=== PATIENT | male | born 1940 | race Caucasian/White ===

== ENCOUNTER → 2021-09-03 | Outpatient (CLI) | payer OTHER ==
[~2021-09-03] VITALS: Ht 177.8 cm; Wt 102.3 kg
[~2021-09-03] MED LIST: ADULT LOW DOSE81 MG PO; BAYER CHEWABLE81 MG PO; BRILINTA90 MG PO; COZAAR 50 MG TA50 M2 PO; EFFIENT10 MG PO; FISH OIL 1,001000 M1 PO; IBUPROFEN 200200 M1 PO; NITROGLYCERIN0.4 MG SUBLING; OMEGA-31000 M1 PO; OMEPRAZOLE 20 M20 M1 PO; OMEPRAZOLE40 MG PO; SIMVASTATIN40 MG PO; THERA-M CAPLET1 EAC2 PO; TOPROL XL25 MG PO; ZOCOR40 MG PO
[2021-09-03 09:37] VITALS: BP 140/85
[2021-09-03 09:54] LABS: HEMATOCRIT 49.1 % (42.0-52.0); MCH 32.7 pg (26.0-34.0); MCHC 34.6 g/dL (28.0-37.0); MCV 94.5 fL (80.0-100.0); MPV 7.8 fl. (7.2-11.1); RBC 5.19 mil/uL (4.50-6.00); RDW-CV 13.5 % (10.5-14.5); WBC 7.3 thou/uL (4.0-11.0)
[2021-09-03 10:09] LABS: ANION GAP 7 mmol/L (7-16); BUN 27 mg/dL (7-18); CALCIUM 9.5 mg/dL (8.5-10.1); CHLORIDE 105 mmol/L (98-107); CO2 26 mmol/L (21-32); GLUCOSE 106 mg/dL (70-99); POTASSIUM 4.9 mmol/L (3.5-5.1); SODIUM 138 mmol/L (136-145)
[2021-09-03 10:14] LABS: ALBUMIN 3.5 g/dL (3.4-5.0); ALKALINE PHOSPHATASE 90 U/L (46-116); CHOLESTEROL 183 mg/dL (<200); HDL CHOLESTEROL 39 mg/dL (>40); LDL CHOLESTEROL 83 mg/dL (<100); SGOT 38 U/L (15-37); SGPT 25 U/L (30-65); TC:HDL 4.7 Ratio (Not establshd); TOTAL BILIRUBIN 0.8 mg/dL (<0.1-1.0); TOTAL PROTEIN 7.7 g/dL (6.4-8.2); TRIGLYCERIDE 307 mg/dL (<150); VLDL 61 mg/dL (<40)
[2021-09-03 10:17] LABS: SERUM ASSESSMENT Clear
--- NOTE | 2021-09-03 10:24 | EKG ---
[place] [address] ELECTROCARDIOGRAM REPORT Name: QUE ABBASI Room: [facility]#: [id number] Admission: 09/03/21 Attend Phys: Silverio Real, Discharge: Date of : 38 Date of Service: 09/03/21 0954 Report #: [id number] THIS REPORT FOR: //name// [facility] Test Date: 2021-09-03 Test Time: 09:54:57 Pat Name: QUE ABBASI Department: Room: Gender: Machine Technician: : 1940 Requested By: Que Diallo Order Number: [id number] Antwon MD: Que Diallo Measurements Intervals [place] Rate: 82 P: 53 GA: 162 QRS: 37 QRSD: 85 T: 29 QT: 371 QTc: 434 Interpretive Statements Sinus rhythm Ventricular premature complex Borderline low voltage, extremity leads Compared to ECG 06/25/2014 08:08:48 Ventricular premature complex(es) now present Electronically Signed On 09-03-2021 10:24:29 [employer] by Que Diallo [email or web address] <ELECTRONICALLY SIGNED> By: Que Diallo MD, FACC 09/03/21 [id number] [id number] Que Diallo MD, FAC /EPI
[2021-09-03 10:42] LABS: APTT 26.4 Seconds (25.0-31.3); PROTIME 9.9 Seconds (9.20-11.50)
[2021-09-03 11:31] VITALS: BP 118/65
[2021-09-03 11:45] VITALS: BP 111/62
[2021-09-03 13:00] VITALS: BP 124/61
[2021-09-03 13:30] VITALS: BP 120/66
--- NOTE | 2021-09-03 17:19 | CARD ---
[address] [address] CARDIAC CATH REPORT Name: QUE ABBASI Room: [facility].[place].#: [id number] Admission: 09/03/21 Attend Phys: Silverio Real MD, Discharge: Date of : 38 Report #: [id number] THIS REPORT FOR: cc: Que Jerome MD, David A. MD Blick, David R. MD [facility] ~ APPROVED REPORT Study performed: 09/03/2021 09:39:43 Patient Details Patient Status: Out-Patient Room #: The patient is a 80 year-old male Event Personnel Rosalba Stover RN, Vicky Cespedes RTR, Brittni Gonzalez RTR Procedures Performed Left Heart Cath with LV gram Indication Chest pain Risk Factors Hypercholesterolemia, Coronary Artery DiseaseHypertension Previous Procedures/Diagnoses Previous PCI, Previous CO Admission/Lab Medications/Medications given during procedure Heparin Unfract. Procedure Narrative The patient was brought electively to the Cardiac Catheterization Laboratory and was prepped and draped in a sterile manner. The right wrist was infiltrated with 2% Lidocaine subcutaneous anesthesia. IV conscious sedation was used throughout procedure with appropriate monitoring and was performed in the presence of a registered nurse who was an independent trained observer other than the physician performing the procedure. A 6Fr glidesheath slender sheath was inserted into the right radial artery. Coronary angiography was performed using coronary diagnostic catheters. The right coronary system was accessed and visualized with a Diagnostic 6Fr JR4 [place] [address] CARDIAC CATH REPORT Name: QUE ABBASI Room: [facility]#: [id number] Admission: 09/03/21 Attend Phys: Silveiro Real MD, Discharge: Date of : 38 Report #: [id number] catheter. The left coronary system was accessed and visualized with a Diagnostic 6Fr JL4 catheter. The left ventricle was accessed and visualized with a Diagnostic 6Fr Straight Pigtail catheter. Left ventricular/Aortic Valve gradient assessed via catheter pullback. Left ventriculogram was performed in BURG[place] projection. Closure device was deployed with a 6 Fr vascband. The patient tolerated the procedure well and there were no complications associated with the procedure. There was no hematoma. Radial band applied with 12 ml of air Intraoperative Conscious Sedation Sedation start time: 1049 Case end Time: 1114 Fentanyl 25.0 mcg Versed 1.0 mg Fluoro Time: 3.4 minutes Dose: DAP 57140 cGycm2 1006 mGy Contrast Type and Amount: Omnipaque 100ml Coronary Angiography The patient's coronary anatomy is right dominant. Diagnostic Cath Left Main 30% distal stenosis LAD Stent in the proximal LAD had 0% stenosis. Mid LAD had a 60% stenosis. The apical LAD had a small lumen with a 90% stenosis at the apex. Circumflex 0% stenosis OM2 30% proximal stenosis Right Coronary Stent in the proximal RCA had a 40% restenosis. More distal stent in the RCA had 0% stenosis. There was a 40% stenosis between the 2 stents. R PDA medium sized vessel with a 70% ostial stenosis. Left Ventriculography The left ventricular ejection fraction is estimated to be 60-65%. Left ventricular wall motion abnormalities are not present. There is no mitral insufficiency. Hemodynamics The aortic pressure is 110/64 mmHg with a mean of 86 mmHg. The left ventricular pressure is 116/10 mmHg with a mean of 10 mmHg. The left ventricular end diastolic pressure is 12 mmHg. There was no gradient across the aortic valve upon pullback. Pullback from the left ventricle to the aorta revealed no gradient [place] [address] CARDIAC CATH REPORT Name: QUE ABBASI Room: [facility]#: [id number] Admission: 09/03/21 Attend Phys: Silverio Real MD, Discharge: Date of : 38 Report #: [id number] valve. Conclusion 1. no restenosis noted of a stent in the proximal LAD. The mid LAD had a 60% stenosis and the very apical LAD had a 90% stenosis. 2. no restenosis of stents noted in the proximal and mid RCA 3. The posterior descending branch of the distal RCA had an ostial 70% stenosis. 4. LVEF 60-65% Recommendations Aggressive Medical Therapy <ELECTRONICALLY SIGNED> By: Que Diallo MD, FACC 09/03/211717 17 17Daenoch Diallo MD, [facility] /INF
== END | disposition home or self-care (01) ==
LOC: M.CL 08:59
PROVIDERS: Internal Medicine Cardiovascular Disease; ATTEND Internal Medicine
DX: R07.9 Chest pain, unspecified (principal); I25.10 Atherosclerotic heart disease of native coronary artery without angina pectoris; I10 Essential (primary) hypertension; E78.00 Pure hypercholesterolemia, unspecified; Z20.822 Contact with and (suspected) exposure to COVID-19; Z98.890 Other specified postprocedural states; Z79.899 Other long term (current) drug therapy; Z79.82 Long term (current) use of aspirin; Z88.8 Allergy status to other drugs, medicaments and biological substances

== ENCOUNTER → 2021-11-07 | Outpatient (CLI) | payer OTHER ==
--- NOTE | 2021-11-07 16:34 | CARDNUC ---
[place] [address] CARDIAC NUCLEAR IMAGING REPORT Name: QUE ABBASI Room: [facility]#: [id number] Admission: 11/07/21 Attend Phys: Silverio Real, Discharge: Date of : 38 Date of Service: 11/07/21 1634 Report #: [id number] THIS REPORT FOR: cc: Que Jerome MD, David A. MD Liston, Michael J. MD [facility] ~ APPROVED REPORT Study performed: 11/07/2021 10:12:14 Exam: Nuclear Stress Test Indication: Chest pain, Dyspnea Stress Tech: TJ BLANDON Stress Nurse: Makayla Flores RN NM Tech:YONY Hartman Ht: 5 ft 10 in Wt: 229 lbs BSA: 2.21 m2 BMI: 32.85 Medical History Medical History: CAD s/p [place], CAD s/p stent, HTN, Hyperlipidemia Medications: asa, losartan, simvastatin Allergies: No known drug allergies Cardiac Risk Factors: Age, HTN, Hyperlipidemia Previous Cardiac Procedures: PCI, Myocardial infarction Exercise History: Indeterminate Stress Test Details Stress Test: Pharmacologic stress testing performed using 0.4 mg of regadenoson per 5 mL given IV over 10 seconds. Reason for pharmacologic stress test: physical limitation. HR Resting HR: 98 bpm Max Heart Rate (APMHR): 139 bpm Max HR Achieved: 114 bpm Target HR (85% APMHR): 118 bpm % of APMHR: 82 Recovery HR: 105 bpm BP Resting BP: 155/85 mmHg Max BP: 145/77 [place] [address] CARDIAC NUCLEAR IMAGING REPORT Name: QUE ABBASI Room: [facility]#: [id number] Admission: 11/07/21 Attend Phys: Silverio Real, Discharge: Date of : 38 Date of Service: 11/07/21 1634 Report #: [id number] Resting ECG: Sinus Rhythm Stress ECG: Sinus Tachycardia ST Change: None Arrhythmia: APC's Recovery ECG: Sinus Rhythm Recovery ST Change: None Recovery Arrhythmia: APC's Clinical Reason for Termination: Completed protocol The patient tolerated Lexiscan infusion without significant cardiac symptoms. Stress ECG Conclusion The baseline twelve-lead EKG shows sinus rhythm with occasional premature atrial contraction. No acute or significant ST segment changes noted. EKGs obtained during and post Lexiscan infusion show sinus rhythm and sinus tachycardia with no significant ST segment changes when compared with baseline. Patient continued to have intermittent premature atrial contractions throughout the stress and recovery phase. NM EXAM: Myocardial Perfusion REST/STRESS Imaging Protocol: Rest Tc-99m/Stress Tc-99m 1 day Resting Data Rest SPECT myocardial perfusion imaging was performed in supine position 30 minutes following the intravenous injection of 10.7 mCi of Tc-99m Sestamibi. Time of rest injection: 0900 Date: 11/07/2021 The images were gated to evaluate regional wall motion and calculate left ventricular ejection fraction. Administration Route: IV Pharmacologic Stress Pharmacologic stress test was performed by injecting Regadenoson 0.4 mg IV push followed by the intravenous injection of 35.2 mCi of Tc-99m Sestamibi. Time of stress injection: 1010 Date: 11/07/2021 Administration Route: IV Gated Stress SPECT was performed 40 minutes after stress injection. The images were gated to evaluate regional wall motion and calculate left ventricular ejection fraction. Prone [place] [address] CARDIAC NUCLEAR IMAGING REPORT Name: QUE ABBASI Room: [facility]#: [id number] Admission: 11/07/21 Attend Phys: Silverio Real, Discharge: Date of : 38 Date of Service: 11/07/21 1634 Report #: [id number] Study Quality Study: Good Artifact: Mild Diaphragmatic artifact Study Data At rest, the left ventricular ejection fraction was 79%.. Post stress, the left ventricular ejection was 86%.. TID = 0.77. Perfusion Perfusion images obtained at rest and post Lexiscan stress in the supine position show a moderate region of photopenia involving the inferior wall that resolves completely with post-rest prone imaging consistent with diaphragmatic attenuation artifact. Post-rest prone imaging shows uniform uptake of the radioisotope throughout the myocardium. There were no defects to suggest infarct or ischemia. Wall Motion Normal left ventricular wall motion. Nuclear Conclusion ECG Findings: negative for ischemia Clinical Findings: negative for ischemia Nuclear Findings: negative for ischemia Exercise Capacity: not assessed Left Ventricular Function: normal Risk Study: low Perfusion study show no defect to suggest infarct or ischemia. Left ventricular systolic function appears normal on gated studies. This is a low risk study. <Conclusion> The baseline twelve-lead EKG shows sinus rhythm with occasional premature atrial contraction. No acute or significant ST segment changes noted. EKGs obtained during and post Lexiscan infusion show sinus rhythm and sinus tachycardia with no significant ST segment changes when compared with baseline. Patient continued to have intermittent premature atrial contractions throughout the stress and recovery phase. <ELECTRONICALLY SIGNED> By: Thanh Ordonez MD, FACC 11/07/21 1634 1634 1634 Thanh Ordonez MD, FACC /INF
== END ==
LOC: M.NUC 08:00
PROVIDERS: ATTEND Internal Medicine
DX: I25.10 Atherosclerotic heart disease of native coronary artery without angina pectoris (principal); I10 Essential (primary) hypertension; Z95.820 Peripheral vascular angioplasty status with implants and grafts